=== PATIENT | male | born 1985 | race Two or more races ===

== ENCOUNTER 2020-04-27 06:09 | Emergency (ER) | payer SELFPAY ==
[~2020-04-27] VITALS: Ht 177.8 cm; Wt 162.4 kg
--- NOTE | 2020-04-27 06:15 | NUR ---
PT CAME TO THE ED C/O LOWER ABDOMINAL PAIN X 1 MONTH. PT ENDORSES PAIN WHEN URINATING. PT AAOX4M, VSS, RESPIRATIONS EVEN AND UNLABORED ON RA W/ NAD NOTED. PT CONNECTED TO THE MONITOR AND POX. AWAITING FOR MD LOPEZ
[2020-04-27] MEDS ORDERED: IV NS 0.9% 1,000 ML BAG IV ONE (07:00)
[2020-04-27 07:16] LABS: APPEARANCE,URINE CLEAR (CLEAR); BILIRUBIN,URINE NEGATIVE (NEGATIVE); BLOOD, URINE NEGATIVE Ery/uL (NEGATIVE); COLOR,URINE YELLOW (YELLOW); KETONES,URINE 15 (NEGATIVE); LEUKOCYTE ESTERASE ,URINE NEGATIVE (NEGATIVE); NITRITE, URINE NEGATIVE (NEGATIVE); PROTEIN,URINE NEGATIVE (NEGATIVE); UGLUCOSE NEGATIVE (NEGATIVE); UROBILINOGEN,URINE 0.2 EU/dL (0.2)
--- NOTE | 2020-04-27 07:22 | NUR ---
Patient does not wish to proceed with medical care recommended by Dr. Solomon. Patient given information related to possible complications, up to and including , which could occur as a result of leaving the hospital at this time. Patient verbalizes understanding of risks involved due to leaving against medical advice. Patient has signed AMA form.
--- NOTE | 2020-04-27 07:25 | NUR ---
ambulated to the bathroom with steady gait
--- NOTE | 2020-04-27 07:35 | NUR ---
checked on him since he pulled the emergency call for help, said he's alright but refused to open the door
[2020-04-27 07:36] LABS: BACTERIA,URINE Rare /HPF (None Seen); RBC,URINE NONE SEEN /HPF (0-2); SQUAMOUS EPITHELIAL CELL,UR Rare /HPF (None Seen); WBC,URINE 0-2 /HPF (0-3)
--- NOTE | 2020-04-27 07:40 | NUR ---
DR RIVER AT THE DOOR ASKING HIM TO OPEN THE DOOR AND GO BACK TO HIS BED IF HE WANTS TREATMENT. HE CONTINUED TO BE BELLIGERENT AND VERBALLY ABUSIVE, SECURITY CALLED FOR ASSISTANCE
[2020-04-27 07:44] LABS: CALCIUM, SERUM 8.9 mg/dL (8.5-10.1); CREATININE 0.7 mg/dL (0.6-1.3); POTASSIUM 3.1 mmol/L (3.5-5.1)
--- NOTE | 2020-04-27 07:45 | NUR ---
HE OPENED THE DOOR BUT REFUSED TO GO OUT AND STARTED TRASHING THE BATHROOM,KICKING THE TRASH CAN AND THROWING HIS STUFF. IAIN PEÑA WAS CALLED. ADMITTING WAS CALLED FOR ASSISTANCE
[2020-04-27 07:49] LABS: ALBUMIN 3.8 g/dL (3.4-5.0); BILIRUBIN,DIRECT 0.1 mg/dL (0.0-0.2); BILIRUBIN,TOTAL 0.8 mg/dL (0.2-1.0); TOTAL PROTEIN, SERUM 7.6 g/dL (6.4-8.2)
--- NOTE | 2020-04-27 07:50 | NUR ---
Security present, staff asked patient if he wants to leave or to stay, patient decided to stay and assisted to bed. Once he was in bed, he became agitated, verbally and physically aggressive, and spat on staff, patient was then placed on four point restraint by security and staff. Dr. Solomon made aware.
--- NOTE | 2020-04-27 08:00 | NUR ---
[facility] unit came and interview staff re: patient.
[2020-04-27] MEDS ORDERED: OLANZAPINE 10 MG VIAL IM ONE ×2 (08:10→08:30)
[2020-04-27 09:12] LABS: BASOPHILS % (AUTO) 0.3 % (0.0-2.0); EOSINOPHILS % (AUTO) 0.1 % (0.0-6.0); HEMATOCRIT 45 % (39-51); HEMOGLOBIN 14.6 g/dL (13.5-17.5); LYMPHOCYTES # (AUTO) 1.3 /CMM (0.8-4.8); LYMPHOCYTES % (AUTO) 8.7 % (20.0-44.0); MEAN CORPUSCULAR HGB CONC 32 g/dl (31.0-36.0); MEAN CORPUSCULAR VOLUME 87 fL (80-96); MONOCYTES # (AUTO) 0.7 /CMM (0.1-1.30); MONOCYTES % (AUTO) 4.9 % (2.0-12.0); NEUTROPHILS # (AUTO) 12.7 /CMM (1.8-8.9); PLATELET COUNT (AUTO) 315 /CMM (150-450); RED BLOOD CELL COUNT(AUTO) 5.16 MIL/uL (4.5-6.0); WHITE BLOOD COUNT (AUTO) 14.8 K/uL (4.3-11.0)
[2020-04-27 09:16] LABS: ACETAMINOPHEN 0 ug/ml (10-30); ALCOHOL, BLOOD < 3 mg/dL (0-0); SALICYLATE 4.6 mg/dL (2.8-20.0)
--- NOTE | 2020-04-27 10:08 | NUR ---
PATIENT RESTING, NO DISTRESS NOTED, BILATERAL HAND RESTRAINTS REMOVED. Addendum: 04/27/20 at 1011 by NATTY BILATERAL UPPER AND LOWER EXTREMITIES RESTAINTS REMOVED.
--- NOTE | 2020-04-27 10:08 | NUR ---
CALLED FOR ANIYA Monreal ON HER WAY DOWN.
--- NOTE | 2020-04-27 10:15 | NUR ---
Social Service consult requested by MD for psychiatric evaluation and bizarre behavior. Per MD notes, pt is a 35-year-old male with history of depression currently presenting to the ER with multiple concerns. Patient states that he had a urinary tract infection in November/December which required a prolonged course of antibiotics due to the fact that it was not clearing. He had cleared the infection by January, but subsequently started to develop diffuse lower abdominal discomfort, episodic. States that that abdominal discomfort is what brought him to the ER today, although it is not changed in those 3+ months. Additionally states that he has been feeling some depressive symptoms. He states that he has a baseline depression and has a therapist that he is going to call later this morning. Denies SI/HI. [place] his own voice once without any commands. Denies visual hallucinations. States that he does feel frustrated with the government over the recent week due to current events regarding [place] Bruno highlighting the ongoing systemic racism in this country. Does not feel that he would act violently on these frustrations. The patient states that he would really appreciate evaluation of his abdominal discomfort as well as something to eat. Denies cough, sore throat. The patient's friend or family member did call the ER and stated that he had some manic-like symptoms this morning. PULP PLANT SUPERVISOR conducted chart review and met with the pt and AISHWARYA gonsales in ED. Pt is alert and oriented x 4. Per RN, earlier today, pt locked himself in the bathroom and would not open. With assistance from security, pt opened the door, he became agitated, verbally and physically aggressive, and spat on staff, patient was then taken to his room placed on four point restraint by security. PULP PLANT SUPERVISOR introduced self and purpose of the visit. Pt is alert and oriented x 4. Pt appears to be much calm and cooperative at this time. Pt reports, he resides with five roommates in a house located at [address] [place] [address]. Pt reports, he sees a therapist Kimberly Parr in [place] and has a psychiatric diagnosis, however he is not able to stated what his diagnosis is. Pt reports he had a breakdown this AM due to being awake for the past 24 hours, not getting enough sleep and frustrated over the current events regarding Lorenzo Bruno. Pt's emergency contact is his brother Jonah . Jonah resides in [place]. Pt is currently denying SI/HI and visual/auditory hallucinations at this time. Pt gave verbal consent for SW to contact his roommate Katie . PULP PLANT SUPERVISOR left a voicemail message for Katie, requesting a call back. Pt reports, he is able to go back to live with his roommates. Pt to be evaluated by corn sheller operator Gail, prior to discharge. PULP PLANT SUPERVISOR received a call from pt's brother Jonah. Per Jonah, pt appers to have had his first psychotic break this morning. Jonah reports, pt has a family history of Depression, Anxiety and Schizophrenia. Jonah reports, pt told him this am, "maybe I should kill myself." PULP PLANT SUPERVISOR informed Jonah, pt is denying SI/HI at this time, however, corn sheller operator will evaluate the pt prior to discharge. Customer Insight Analyst will be available for support as needed. PULP PLANT SUPERVISOR informed AISHWARYA Queen regarding corn sheller operator AISHWARYA Reynolds coming to evaluate pt at 12:30PM today.
--- NOTE | 2020-04-27 10:25 | NUR ---
SEEN AND EXAMINED BY [facility].
[2020-04-27 11:04] VITALS: BP 134/64
--- NOTE | 2020-04-27 11:28 | NUR ---
ULISSES WILL BE HERE BY 1200
--- NOTE | 2020-04-27 13:27 | NUR ---
ULISSES AT BEDSIDE FOR EVAL. PATIENT IS RESTING, NO DISTRESS NOTED.
--- NOTE | 2020-04-27 14:00 | NUR ---
IV removed. Catheter intact and site benign. Pressure and 4x4 applied to site. No bleeding noted.
--- NOTE | 2020-04-27 14:23 | NUR ---
WAITING FOR A FRIEND TO PICK HIM UP, WILL BE ARRANGED BY HIS BROTHER.
--- NOTE | 2020-04-27 16:56 | NUR ---
Patient discharged to home in stable condition. Written and verbal after care instructions given. Patient verbalizes understanding of instruction. Friends came and milk pickup driver the patient.
== END 2020-04-27 07:24 | disposition left against medical advice (07) ==
LOC: ER 06:13
DX: F28 Other psychotic disorder not due to a substance or known physiological condition (principal); R10.9 Unspecified abdominal pain; F17.200 Nicotine dependence, unspecified, uncomplicated; Z98.890 Other specified postprocedural states
CPT/HCPCS: 36415; 80048; 80074; 80076; 80305; 80307; 80329; 81001; 83690; 85025; 87806; 96372; 99283; G0480; J3490; J7030; 81000-TC

== ENCOUNTER 2020-04-28 09:43 | Emergency (ER) | payer MEDICAID ==
[~2020-04-28] VITALS: Ht 177.8 cm; Wt 161.6 kg
--- NOTE | 2020-04-28 09:45 | NUR ---
PT IBETH FROM HOME C/O SUICIDAL IDEATION DRANK 1OZ OF BLEACH, PT IS AAOX4, NOT IN RESPIRATORY DISTRESS, HOOKED TO MONITOR, KEPT RESTED AND COMFORTABLE, WILL CONTINUE TO MONITOR.
--- NOTE | 2020-04-28 09:50 | NUR ---
SECURITY AT BEDSIDE FOR WANDING AND SITTER AT BEDSIDE.
--- NOTE | 2020-04-28 09:52 | NUR ---
[employer] AT BEDSIDE.
--- NOTE | 2020-04-28 09:53 | NUR ---
BELONGINGS PLACED IN PATIENT LOCKER BY SECURITY
[2020-04-28 10:10] LABS: MEAN CORPUSCULAR HGB CONC 33 g/dl (31.0-36.0)
[2020-04-28 10:13] LABS: BASOPHILS # (AUTO) 0.1 /CMM (0.0-0.2); BASOPHILS % (AUTO) 0.8 % (0.0-2.0); EOSINOPHILS % (AUTO) 0.2 % (0.0-6.0); HEMATOCRIT 43 % (39-51); HEMOGLOBIN 14.2 g/dL (13.5-17.5); LYMPHOCYTES # (AUTO) 1.3 /CMM (0.8-4.8); LYMPHOCYTES % (AUTO) 13.2 % (20.0-44.0); MEAN CORPUSCULAR VOLUME 88 fL (80-96); MONOCYTES # (AUTO) 0.7 /CMM (0.1-1.30); MONOCYTES % (AUTO) 6.6 % (2.0-12.0); NEUTROPHILS # (AUTO) 7.8 /CMM (1.8-8.9); NEUTROPHILS % (AUTO) 79.2 % (43.0-81.0); PLATELET COUNT (AUTO) 201 /CMM (150-450); RED BLOOD CELL COUNT(AUTO) 4.87 MIL/uL (4.5-6.0); WHITE BLOOD COUNT (AUTO) 9.9 K/uL (4.3-11.0)
[2020-04-28 10:15] LABS: CALCIUM, SERUM 8.9 mg/dL (8.5-10.1); CARBON DIOXIDE 28 mmol/L (21-32); CHLORIDE 103 mmol/L (98-107); GLUCOSE 119 mg/dL (74-106); POTASSIUM 2.9 mmol/L (3.5-5.1); SODIUM SERUM 141 mmol/L (136-145); UREA NITROGEN, BLOOD 8 mg/dL (7-18)
[2020-04-28 10:21] LABS: ACETAMINOPHEN 0 ug/ml (10-30); ALANINE AMINOTRANSFERASE 25 U/L (12-78); ALBUMIN 3.8 g/dL (3.4-5.0); ALCOHOL, BLOOD < 3 mg/dL (0-0); ALKALINE PHOSPHATASE 77 U/L (46-116); ASPARTATE AMINOTRANSFERASE 28 U/L (15-37); BILIRUBIN,DIRECT 0.3 mg/dL (0.0-0.2); BILIRUBIN,TOTAL 0.9 mg/dL (0.2-1.0); SALICYLATE 3.8 mg/dL (2.8-20.0); TOTAL PROTEIN, SERUM 7.1 g/dL (6.4-8.2)
--- NOTE | 2020-04-28 10:37 | NUR ---
ROBERTA [phone].
[2020-04-28] MEDS ORDERED: POTASSIUM CHLORIDE 20 MEQ TAB.PRT.SR PO ONE ×2 (11:00→11:12)
--- NOTE | 2020-04-28 13:48 | NUR ---
CURTIS, ROOM MATE, CONTACT INFO.,[phone]
--- NOTE | 2020-04-28 15:10 | NUR ---
Environmental Projects Advisor consult was requested by Emergency Room staff due to poisoning. Pt is a 35 year old male who was admitted to the Emergency Room because he consumed bleach. Pt appeared to be alert and oriented x4 (time, place, self and situation). Pt appeared to be in a depressed mood and presented with a calm affect. Pt stated that he has been feeling depressed on and off for the past couple of days and that he does not feel like he is safe at home anymore. He stated that he has roommates that brought him in but they are not equipped to assist him in this state. Pt stated that there is an extensive history of mental illness of both sides of his family and he is aware that has some implication in his life. Pt stated that he needed help and that he does not feel safe. Pt stated that he feels he needs to be admitted to a hospital and observed for several days as he has inconsistent suicidal ideation. Pts insight and judgment appears to be fair. Plan: SW requested a crisis evaluation on this pt due to suicidal ideation and attempt.
[2020-04-28 15:32] LABS: CALCIUM, SERUM 8.7 mg/dL (8.5-10.1); CREATININE 0.7 mg/dL (0.6-1.3); POTASSIUM 3.7 mmol/L (3.5-5.1)
--- NOTE | 2020-04-28 17:40 | NUR ---
MARIO DEAN [phone] (PSYCH THERAPIST)
--- NOTE | 2020-04-28 19:21 | NUR ---
PATIENT PROVIDED W DINNER TRAY, TOLERATING PO WELL.
--- NOTE | 2020-04-28 19:26 | NUR ---
REPORT GIVEN TO BJ REHMAN RN FOR ANDRÉS
--- NOTE | 2020-04-29 01:13 | NUR ---
PT RESTING COMFORTABLY IN BED. VITAL SIGNS STABLE. SITTER AT BEDSIDE. WILL CONTINUE TO MONITOR
[2020-04-29] MEDS ORDERED: OLANZAPINE 5 MG TABLET ONE (03:50)
[2020-04-29] MEDS ORDERED: OLANZAPINE 5 MG TABLET PO ONE (04:00)
--- NOTE | 2020-04-29 07:16 | NUR ---
REPORT RECEIVED FROM BJ REHMAN RN FOR ANDRÉS. PATIENT IN BED ASLEEP. EASILY AROUSABLE BY VOICE. NO DISTRESS NOTED. HOOKED TO MONITOR, VSS. WILL CONTINUE TO MONITOR ACCORDINGLY. SITTER AT BEDSIDE
--- NOTE | 2020-04-29 08:32 | NUR ---
BREAKFAST TRAY PROVIDED. TOLERATED PO WELL.
--- NOTE | 2020-04-29 10:12 | NUR ---
PATIENT IN BED AWAKE. NO DISTRESS NOTED. HOOKED TO MONITOR, VSS. WILL CONTINUE TO MONITOR ACCORDINGLY. SITTER AT BEDSIDE
--- NOTE | 2020-04-29 10:23 | NUR ---
YOSEF met with the pt at bedside in the Emergency Room and informed him that the SW's supervisor paper products, Estrella Taylor, contacted Chance Leonardo from Crisis Team to evaluate the pt. YOSEF stated that once that evaluation is complete the pts will be discharged accordingly.
--- NOTE | 2020-04-29 11:11 | NUR ---
CALL FROM JEEVAN GRAVES, MONICA, HE'S ON HIS WAY
--- NOTE | 2020-04-29 12:32 | NUR ---
WELDING MACHINE OPERATOR ARC ABDIFATAH ALLEN AT BEDSIDE
--- NOTE | 2020-04-29 13:42 | NUR ---
PATIENT COMFORTABLE IN BED. NO DISTRESS NOTED. HOOKED TO MONITOR, VSS. WILL CONTINUE TO MONITOR ACCORDINGLY.
--- NOTE | 2020-04-29 14:42 | NUR ---
PATIENT PROVIDED W RESOURCES REGARDING FMLA BY ADMITTING DEPT
--- NOTE | 2020-04-29 14:49 | NUR ---
PATIENT VERBALIZED PLASN OF CLAIMING MEDICATION FROM PHARMACY THEN GO STRAIGHT TO [facility] TO BE FURTHER CHECKED.
--- NOTE | 2020-04-29 14:51 | NUR ---
Patient discharged to home in stable condition. Written and verbal after care instructions given. Patient verbalizes understanding of instruction.
[2020-04-29 14:53] VITALS: BP 126/62
== END 2020-04-29 14:54 | disposition home or self-care (01) ==
LOC: ER 09:46
DX: R45.851 Suicidal ideations (principal); T54.91XA Toxic effect of unspecified corrosive substance, accidental (unintentional), initial encounter; F32.9 Major depressive disorder, single episode, unspecified; E87.6 Hypokalemia; F12.10 Cannabis abuse, uncomplicated; F17.200 Nicotine dependence, unspecified, uncomplicated; Y92.89 Other specified places as the place of occurrence of the external cause; Z98.890 Other specified postprocedural states
CPT/HCPCS: 36415; 80048 ×2; 80076; 80305; 80307; 80329; 85025; 99285; G0480